=== PATIENT | male | born 1965 | race Caucasian/White ===

== ENCOUNTER 2018-03-15 20:25 | Inpatient (IN) | payer OTHER ==
[~2018-03-15] VITALS: Ht 172.7 cm; Wt 92.5 kg
[~2018-03-15 20:25] MED LIST: ALEVE220 MG PO; GLUCOSAMINE CH1 EAC1 PO; LEXAPRO10 MG PO; MELATONIN1 MG PO; NASONEX17 GM BOTH NARES; TYLENOL REGULA325 MG PO
[2018-03-16 06:55] VITALS: BP 137/80
[2018-03-16 14:09] VITALS: BP 111/69
[2018-03-16 16:16] VITALS: BP 119/71
[2018-03-16 20:04] VITALS: BP 115/63
[2018-03-17 00:06] VITALS: BP 108/57
[2018-03-17 04:27] VITALS: BP 110/62
[2018-03-17 06:31] LABS: CHLORIDE 105 MEQ/L (99-109); CREATININE 0.8 MG/DL (0.6-1.3); GFR ESTIMATE (CALCULATED) > 59 mL/min/ (58.99-99999); GLUCOSE 156 mg/dL (70-99); POTASSIUM 4.1 MEQ/L (3.7-5.4); SODIUM 140 MEQ/L (136-147); UREA NITROGEN (BUN) 8 mg/dL (9-23)
[2018-03-17 07:42] VITALS: BP 117/65
[2018-03-17] MEDS ORDERED: ASPIR-LOW81 MG PO (08:38)
[2018-03-17] MEDS ORDERED: TRAMADOL HCL50 MG PO (08:44)
[2018-03-17] MEDS ORDERED: NUCYNTA50 MG PO (08:44)
[2018-03-17 11:57] VITALS: BP 131/63
== END 2018-03-17 15:15 | DRG 470 ==
LOC: ENRESERV 20:25 → 2SOUTH 03-16 06:30 → 3WEST 03-16 13:50 → 2SOUTH 03-16 15:09 → 3WEST 03-17 15:15
PROVIDERS: Orthopaedic Surgery
PROC: 0SRB04Z Replacement of Left Hip Joint with Ceramic on Polyethylene Synthetic Substitute, Open Approach (ICD-10-PCS; principal; 2018-03-16)
DX: M16.12 Unilateral primary osteoarthritis, left hip (principal); J45.909 Unspecified asthma, uncomplicated
CPT/HCPCS: 80048; 97530 GP; J0690; J1170; J1885; J2001; J2250; J2405; J3010; J7050; J7120; S0020